=== PATIENT | male | born 1990 | race African-American/Black ===

== ENCOUNTER 2018-01-03 06:21 | Emergency (ER) | payer SELFPAY ==
[2018-01-03] MEDS ORDERED: ONDANSETRON 4 MG/2 ML VIAL ONE (06:44)
[2018-01-03] MEDS ORDERED: MORPHINE 4 MG/ML SYR ONE (06:44)
[2018-01-03] MEDS ORDERED: NA CHLORIDE 0.9% 1,000 ML ONE (06:44)
[2018-01-03] MEDS ORDERED: CEFAZOLIN/SWI 1gm 1 GM/10 ML SYR ONE (06:44)
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
[2018-01-03] MEDS ORDERED: HYDROCODONE/APAP 10/325 TAB ONE (07:19)
[2018-01-03 07:25] LABS: Absolute Lymphocytes (CBC) 1.7 K/uL (0.7-4.9); Absolute Monocytes 0.5 K/uL (0.1-1.3); Absolute Neutrophil 5.5 K/uL (1.8-8.0); Basophils % 0.3 % (0-1.3); Eosinophils % 0.7 % (0-4.4); Lymphocytes % 22.3 % (15.3-44.8); MCV 92.2 fL (80-100); MPV 9.4 fL (7.6-11.3); Monocytes % 6.3 % (3.3-12.3); RBC Red Blood Cell Count 4.44 M/uL (4.33-5.43)
[2018-01-03 07:38] LABS: Potassium 3.6 mmol/L (3.5-5.1)
[2018-01-03 08:38] LABS: Urine Blood NEGATIVE (NEG); Urine Glucose NEGATIVE (NEG); Urine Protein NEGATIVE (NEG); Urine Specific Gravity 1.025 (1.005-1.030)
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
== END 2018-01-03 07:51 | disposition home or self-care (01) ==
LOC: ER 06:21
DX: S21.201A Unspecified open wound of right back wall of thorax without penetration into thoracic cavity, initial encounter (principal); X93.XXXA Assault by handgun discharge, initial encounter; Y93.9 Activity, unspecified; Y92.89 Other specified places as the place of occurrence of the external cause
CPT/HCPCS: 36415; 71045; 71260; 80048; 81003; 85025; 86850; 86900; 86901; 96374; 96375; 99285; J0690; J2405; J7030; Q9967